=== PATIENT | female | born 1980 | race Caucasian/White ===

== ENCOUNTER 2017-04-19 07:25 | Emergency (ER) | payer MEDICAID ==
[~2017-04-19] VITALS: Ht 162.6 cm; Wt 30.7 kg
[~2017-04-19 07:25] MED LIST: FURO20TA PO; POTA-163 PO; SODI1TAB PO
[2017-04-19 07:33] VITALS: BP 79/51; PULSE 54; RESP 16; TEMP 97.7; O2SAT 99
[2017-04-19] MEDS ORDERED: FURO20TA PO (08:09)
[2017-04-19] MEDS ORDERED: POTA-163 PO (08:09)
[2017-04-19] MEDS ORDERED: SODI1TAB PO (08:09)
--- NOTE | 2017-04-19 08:09 | PD ---
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 She states she is almost running out and is in between doctors. She's can establish with his clinic. She has regular blood work and actually had blood work done this morning that her old doctor reportedly, follow up on. She has no complaints. She states she's been on the same regimen for years and has been working for her. History Past Medical History Narrative Medical Hyponatremia,? Psychogenic polydipsia Eating disorder : 1 Social History Alcohol Use: No Tobacco Use: No (QUIT 2008) Allergies-Medications (Allergen,Severity, Reaction): Coded Allergies: Clindamycin (Verified Allergy, Severe, Nausea/Vomiting, 03/29/17) Penicillin (Verified Allergy, Severe, Nausea/Vomiting, 03/29/17) Erythromycin (Verified Allergy, Intermediate, VOMITING, 03/29/17) Reported Meds & Prescriptions Reported Meds & Active Scripts Active Reported Potassium Chloride ER (Potassium Chloride) 20 Meq Tab 20 Meq PO DAILY Furosemide 20 Mg Tab 10 Mg PO BID Sodium Chloride 1 Gm Tab 1 Gm PO 6 TIMES DAILY Review of Systems Except as stated in HPI: all other systems reviewed are Neg Physical Exam Narrative Gen.: Well-appearing 36-year-old woman, no acute distress Pulmonary: No respiratory distress, normal rate and effort Cardiovascular: Warm and well perfused. Data Data Last Documented VS Vital Signs Date Time Temp Pulse Resp B/P Pulse Ox O2 Delivery O2 Flow Rate FiO2 04/19/17 07:33 97.7 54 16 79/51 99 MDM Medical Decision Making Medical Screen Exam Complete: Yes Emergency Medical Condition: Yes Differential Diagnosis Hyponatremia Narrative Course Medical decision making 36-year-old woman needs refill of medications. Diagnosis Primary Impression: Hyponatremia Additional Instructions: Follow-up with the [facility] as planned. Med/Other Pt SpecificInfo: Prescription(s) given Scripts Potassium Chloride ER 20 Meq Tab20 Meq PO DAILY #90 TAB Ref 0 Prov:Lj Marcelino MD 04/19/17 Furosemide 20 Mg Tab10 Mg PO BID #60 TAB Ref 0 Prov:Lj Marcelino MD 04/19/17 Sodium Chloride 1 Gm Tab1 Gm PO 6 times daily #60 TAB Ref 6 Prov:Lj Marcelino MD 04/19/17 Disposition: 01 DISCHARGE HOME Condition: Stable Lj Marcelino MD Apr 19, 2017 08:09
[2017-04-19 08:28] VITALS: BP 83/60
== END 2017-04-19 08:30 | disposition home or self-care (01) ==
LOC: PHED 07:25
DX: E87.1 Hypo-osmolality and hyponatremia (principal); Z76.0 Encounter for issue of repeat prescription
CPT/HCPCS: 99281

== ENCOUNTER 2017-05-21 22:21 | Emergency (ER) | payer MEDICAID ==
[~2017-05-21] VITALS: Ht 165.1 cm; Wt 30.5 kg
[2017-05-21 22:24] VITALS: BP 90/55; PULSE 76; RESP 18; TEMP 97.7; O2SAT 98
--- NOTE | 2017-05-21 22:53 | PD ---
HPI Chief Complaint: Injury Time Seen by Provider: 22:48 Travel History International Travel<30 days: No Contact w/Intl Traveler<30days: No Traveled to known affect area: No History of Present Illness HPI The patient is a 36-year-old right-hand dominant female that fell 4 days ago on her right hand and she has pain at the proximal fifth metacarpal and proximal right fourth and fifth phalanges. She denies any other injury. PFSH Past Medical History Arthritis: Yes Asthma: Yes (CHILDHOOD) Blood Disorders: No Anxiety: Yes Depression: Yes Cancer: No Diminished Hearing: No Endocrine: No Gastrointestinal Disorders: Yes (NAUSEA AFTER EATING bulemia and anorexia) Genitourinary: Yes (HERPES) Headaches: Yes Immune Disorder: No Implanted Vascular Access Dvce: No Musculoskeletal: Yes (BACK PAIN, OSTEOPOROSIS, SCOLIOSIS) Neurologic: No Psychiatric: Yes (bulemia) Reproductive: No Respiratory: Yes (ASTHMA) Pneumonia: Yes Tetanus Vaccination: Unknown ?: Not LMP: 10 YEARS : 1 Miscarriage: 1 Ovarian Cysts: Yes Past Surgical History AICD: No Arteriovenous Shunt: No Insulin Pump: No Joint Replacement: No Pacemaker: No Other Surgery: No Family History Family Hypercholesterolemia: Yes (MOTHER) Social History Alcohol Use: No Tobacco Use: No (QUIT 2008) Substance Use: No Allergies-Medications (Allergen,Severity, Reaction): Coded Allergies: Clindamycin (Verified Allergy, Severe, Nausea/Vomiting, 05/21/17) Penicillin (Verified Allergy, Severe, Nausea/Vomiting, 05/21/17) Erythromycin (Verified Allergy, Intermediate, VOMITING, 05/21/17) Reported Meds & Prescriptions Reported Meds & Active Scripts Active Potassium Chloride ER (Potassium Chloride) 20 Meq Tab 20 Meq PO DAILY Furosemide 20 Mg Tab 10 Mg PO BID Sodium Chloride 1 Gm Tab 1 Gm PO 6 TIMES DAILY Review of Systems Except as stated in HPI: all other systems reviewed are Neg Physical Exam Narrative GENERAL: The patient is thin and minimal apparent distress with her right hand discomfort. SKIN: Focused skin assessment warm/dry. There is minimal bruising about the fourth and fifth proximal phalanges of the right hand and slightly proximal to the fifth metacarpal. HEAD: Normocephalic. EYES: No scleral icterus. No injection or drainage. NECK: Supple, trachea midline. No JVD or lymphadenopathy. CARDIOVASCULAR: Regular rate and rhythm without murmurs, gallops, or rubs. RESPIRATORY: Breath sounds equal bilaterally. No accessory muscle use. GASTROINTESTINAL: Abdomen soft, non-tender, nondistended. MUSCULOSKELETAL: No cyanosis, or edema. No bony deformity is present on the hand and the tenderness appears to be associated with the bruising. Good capillary refill is present and normal sensation is present on the fingers. BACK: Nontender without obvious deformity. No CVA tenderness. Data Data Last Documented VS Vital Signs Date Time Temp Pulse Resp B/P Pulse Ox O2 Delivery O2 Flow Rate FiO2 05/21/17 22:35 Room Air 05/21/17 22:24 97.7 76 18 90/55 98 Orders Hand, Complete ([id number]) (05/21/17 22:48) [facility] Medical Decision Making Medical Screen Exam Complete: Yes Emergency Medical Condition: Yes Medical Record Reviewed: Yes Interpretation(s) X-ray show no fracture of the hand. Differential Diagnosis Fracture hand, contusion hand Narrative Course The patient has a contusion of the right hand. She will get a Velcro wrist splint because she is symptomatic with this, hopefully this will help the pain. Diagnosis Primary Impression: Contusion of right hand including fingers Additional Instructions: Elevate the hand above your heart, this helps pain also. Follow-up with your primary care physician next week if this still continues to be painful. Med/Other Pt SpecificInfo: No Change to Meds Disposition: 01 DISCHARGE HOME Condition: Stable Bimal Pantoja MD May 21, 2017 22:53
--- NOTE | 2017-05-21 23:11 | RADRPT ---
EXAM DATE/TIME: 05/21/2017 22:58 [place] COMPARISON: No previous studies available for comparison. INDICATIONS : Right hand pain. MEDICAL HISTORY : Osteoporosis. SURGICAL HISTORY : None. ENCOUNTER: Initial ACUITY: 2 days PAIN SCORE: 4/10 LOCATION: Right hand. FINDINGS: Three view examination of the right hand demonstrates no soft tissue swelling, dislocation, or fractu re. The carpal bones appear intact. The interphalangeal and metacarpophalangeal joints are intact. Bony mineralization is normal.CONCLUSION: No acute fracture. Ethan Magallon MD on May 21, 2017 at 23:07 Board Certified Radiologist. This report was verified electronically.
== END 2017-05-21 23:36 | disposition home or self-care (01) ==
LOC: PHED 22:21
DX: S60.221A Contusion of right hand, initial encounter (principal); W19.XXXA Unspecified fall, initial encounter; Y93.9 Activity, unspecified; Y92.9 Unspecified place or not applicable
CPT/HCPCS: 73130; 99283; L3908